=== PATIENT | male | born 1960 | race Caucasian/White ===

== ENCOUNTER 2022-07-09 05:47 | Day surgery (SDC) | payer BC ==
[~2022-07-09] VITALS: Ht 172.7 cm; Wt 94.8 kg
[2022-07-09] MEDS ORDERED: ZESTRIL40 MG PO (06:08)
[2022-07-09] MEDS ORDERED: PRILOSEC 20MG20 MG PO (06:09)
[2022-07-09] MEDS ORDERED: NORVASC 5MG5 MG/TAB PO (06:09)
[2022-07-09] MEDS ORDERED: WELLBUTRIN SR150 M1 PO (06:10)
[2022-07-09] MEDS ORDERED: FLONASE NASAL S16 GM NS (06:10)
[2022-07-09] MEDS ORDERED: REVIA 50MG TABL50 MG PO (06:10)
[2022-07-09] MEDS ORDERED: MULTI VITAMINS1 TAB PO (06:11)
[2022-07-09] MEDS ORDERED: MELATONIN5 M1 PO (06:11)
[2022-07-09] MEDS ORDERED: FISH OIL 500 M1 EAC1 PO (06:11)
[2022-07-09 06:35] VITALS: BP 132/81; PULSE 70; TEMP 97.7
--- NOTE | 2022-07-09 08:30 | NUR ---
Received call from Pharmacist, Alfonzo, concerning patient's discharge pain medications. Was told to notify Dr. Ramires. 1030: Notified Dr. Ramires's PA of pharmacy's message.
[2022-07-09] MEDS ORDERED: CEPHALEXIN500 M1 PO (10:07)
[2022-07-09] MEDS ORDERED: NORCO 325 MG-51 TAB PO (10:07)
[2022-07-09] MEDS ORDERED: ULTRAM 50MG TAB50 MG PO (10:08)
[2022-07-09 11:05] VITALS: BP 152/79; PULSE 72; TEMP 97
[2022-07-09 11:20] VITALS: BP 133/78; PULSE 77
[2022-07-09 11:35] VITALS: BP 133/70; PULSE 77
[2022-07-09 11:50] VITALS: BP 136/70; PULSE 76
--- NOTE | 2022-07-09 12:48 | NUR ---
1105: Patient arrived back into bay 6 from PACU. Patient is alert and oriented. Vital signs stable. Report received from LAUREN Petersen Patient requesting muffins and cranberry juice. Denies nausea. Denies pain, unable to move right upper extremity due to block, but able to feel pressure. Call light left within reach. Dr. Ramires in to see family. Incision sites are clean, dry and intact. Ice packs on patient's right shoulder. Son and daughter at bedside. Shoulder immobilizer in place. 1135: Patient vitally stable. Tolerating food and drink well. 1200: Patient up to restroom via stand by assist. Patient able to void successfully. Meets discharge criteria. Patient to get dressed independently in room. 1215: IV removed without complications. Went through discharge instructions with patient and family. Escorted to patient entrance via wheelchair. Patient left in the care of his children.
== END 2022-07-09 12:20 | disposition home or self-care (01) ==
LOC: SDCO 05:47
DX: M75.121 Complete rotator cuff tear or rupture of right shoulder, not specified as traumatic (principal); M75.41 Impingement syndrome of right shoulder; I10 Essential (primary) hypertension; K21.9 Gastro-esophageal reflux disease without esophagitis; E66.9 Obesity, unspecified; Z79.899 Other long term (current) drug therapy; Z68.33 Body mass index [BMI] 33.0-33.9, adult
CPT/HCPCS: A4566; A4619; C1713; J0690; J1100; J1170; J2250; J2405; J2704; J2795; J3010; J7120